=== PATIENT | female | born 1950 | race Asian ===

== ENCOUNTER 2023-01-20 06:51 | Day surgery (SDC) | payer OTHER ==
[~2023-01-20] VITALS: Ht 154.9 cm; Wt 47.7 kg
[~2023-01-20 06:51] MED LIST: AMLO-257 PO; LOSA-382 PO; PRED-729 PO
[2023-01-20] MEDS ORDERED: LIDOCAINE 2% 11 ML JELLY TP ONE (06:52)
[2023-01-20] MEDS ORDERED: BENZOCAINE 20% 50 MCG/SPRAY 57 GM TP ONE (06:52)
[2023-01-20] MEDS ORDERED: LIDOCAINE 4% 50 ML SOLUTION TP ONE (06:52)
[2023-01-20] MEDS ORDERED: SODIUM CHLORIDE 0.9% 1,000 ML IV ONE (07:00)
[2023-01-20] MEDS ORDERED: GABA-1216 PO (07:15)
[2023-01-20] MEDS ORDERED: MONT-35 PO (07:15)
[2023-01-20] MEDS ORDERED: CHOL25TA4 PO (07:15)
[2023-01-20] MEDS ORDERED: SODIUM CHLORIDE 0.9% 1,000 ML ONE (07:31)
[2023-01-20] MEDS ORDERED: MIDAZOLAM HCL 2 MG/2 ML VIAL ONE (08:14)
[2023-01-20] MEDS ORDERED: FentaNYL CITRATE PF 100 MCG/2 ML VIAL ONE (08:14)
[2023-01-20 09:13] VITALS: PULSE 99; RESP 18; O2SAT 78
[2023-01-20] MEDS ORDERED: MethylPREDNISolone SOD SUCC 125 MG/2 ML VIAL IVP ONE (09:15)
[2023-01-20] MEDS ORDERED: MethylPREDNISolone SOD SUCC 125 MG/2 ML VIAL ONE (09:17)
[2023-01-20] MEDS ORDERED: BUDE10.2 IH (11:21)
[2023-01-20] MEDS ORDERED: FLUT16SP NASAL (11:21)
[2023-01-20] MEDS ORDERED: FAMO20 PO (11:21)
[2023-01-20] MEDS ORDERED: ALBU18HF12 IH (11:21)
== END 2023-01-20 11:20 | disposition home or self-care (01) ==
LOC: SURGERY 06:51
PROVIDERS: ATTEND Internal Medicine Critical Care Medicine
DX: J38.4 Edema of larynx (principal); B37.0 Candidal stomatitis; I10 Essential (primary) hypertension; Z98.49 Cataract extraction status, unspecified eye; Z87.11 Personal history of peptic ulcer disease; Z79.899 Other long term (current) drug therapy
CPT/HCPCS: 31623; 87206; 87101; 87220; 87070; 88108; 31624; 71045; 87015; J3010; J2250; J2930; Q9967; J7030; Z7610